=== PATIENT | female | born 1990 | race Two or more races ===

== ENCOUNTER 2024-09-15 12:52 | Emergency (ER) | payer MEDICAID, SELFPAY ==
[2024-09-15 12:54] VITALS: BMI 24.0
[2024-09-15 13:03] VITALS: BP 114/74; PULSE 73; RESP 18; TEMP 36.9; O2SAT 98
--- NOTE | 2024-09-15 13:23 | XR_ITS ---
Examination: Complete OB ultrasound greater than 14 weeks Date and time of exam: September 15, 2024 1331 hrs. Indications: No movement noticed beginning 2 days ago Findings: Viable intrauterine single fetus with single amniotic sac presentation cephalic Cardiac motion 148 BPM. Placenta maternal right grade 1 Umbilical cord insertion seen Amniotic fluid index 10.7 cm Cervix 4.8 cm Right ovary 3.0 x 2.6 cm arterial flow Left ovary 2.0 x 1.4 cm arterial flow. Composite estimated gestational age based on BPD, head circumference, abdominal circumference, femur length is 19 weeks 6 days Estimated weight 320 g. Survey of intracranial anatomy, spinal anatomy, abdominal anatomy, four-chamber heart performed with no abnormalities identified. Impression: Viable intrauterine gestation cephalic presentation Placenta maternal right, no abruption
--- NOTE | 2024-09-15 13:23 | PD.EDRME ---
Rapid Medical Screening Exam RME Arrival date/time: 09/15/24 12:52 33-year-old female presents emergency department today complaints of pelvic pain vaginal discharge patient reports pain approximate 19 weeks Chief Complaint: General Adult/Misc Complain Vital signs: Vital Signs Temperature 98.4 F 09/15/24 13:03 Pulse Rate 73 09/15/24 13:03 Respiratory Rate 18 09/15/24 13:03 Blood Pressure 114/74 09/15/24 13:03 Pulse Oximetry (%) 98 09/15/24 13:03 Oxygen Delivery Method Room Air 09/15/24 13:03
[2024-09-15 13:42] LABS: Basophils % (Auto) 0 % (0-2.5); Eosinophils % (Auto) 1 % (0-10); Hematocrit 37.2 % (36.0-46.0); Hemoglobin 12.8 g/dL (12.0-16.0); Immature Granulocytes % (Auto) 0 % (0-0); Immature Granulocytes Auto 0.03 Thou/mm3 (0.00-0.00); Lymphocytes # (Auto) 1.8 Thou/mm3 (1.0-4.8); Lymphocytes % (Auto) 21 % (10-50); Mean Corpuscular HGB Conc 34.4 g/dl (31.0-37.0); Mean Corpuscular Hemoglobin 30.1 pg (25.0-35.0); Mean Corpuscular Volume 88 fL (80-100); Monocytes # (Auto) 0.9 Thou/mm3 (0.0-0.8); Monocytes % (Auto) 10 % (0-12); Neutrophils # (Auto) 5.7 Thou/mm3 (1.8-7.7); Neutrophils % (Auto) 68 % (37-80); Nucleated Red Blood Cell % 0 /100 WBC (0); Platelet Count 273 Thou/mm3 (140-440); RDW Standard Deviation 62.3 fL (36.4-46.3); Red Blood Count 4.25 Miln/mm3 (4.00-5.20); White Blood Count 8.4 Thou/mm3 (3.6-11.0)
[2024-09-15 13:58] LABS: Alanine Aminotransferase 13 U/L (10-49); Albumin, Serum 3.7 gm/dL (3.5-5.0); Albumin/Globulin Ratio 1.2 (1.2-2.2); Alkaline Phosphatase 65 U/L (46-116); Anion Gap 7 (7-16); Aspartate Amino Transferase 15 U/L (0-34); BUN/Creatinine Ratio 13 Ratio (12-20); Bilirubin,Total 0.4 mg/dL (0.3-1.2); Blood Urea Nitrogen 8 mg/dL (9-23); Calcium 8.4 mg/dL (8.3-10.6); Calcium (Corrected) 8.6 mg/dL (8.5-10.1); Carbon Dioxide 27.1 mMol/L (20.0-31.0); Chloride 104 mMol/L (98-107); Creatinine (Component) 0.6 mg/dL (0.6-1.3); Estimated Creatinine Clearance 122.5 mL/min (>60); Globulin 3.1 gm/dL (2.3-3.5); Glucose 71 mg/dL (74-106); Osmolality,Calculated 271 (275-295); Potassium 3.8 mMol/L (3.4-5.1); Sodium 138 mMol/L (136-145); Total Protein 6.8 gm/dL (5.7-8.2); eGFR > 60 See Note
[2024-09-15 14:17] LABS: Beta HCG,Quantitative 8108 mIU/mL (<5.0)
[2024-09-15 14:25] LABS: Collection Type, Urine Clean Catch
[2024-09-15 14:29] LABS: Bilirubin,Urine Negative (Negative); Blood,Urine Negative (Negative); Clarity,Urine Clear (Clear/Hazy); Color,Urine Colorless (Lt Yel-Yel); Glucose, Urine Negative (Negative); Ketones,Urine Negative (Negative); Leukocyte Esterase,Urine Negative (Negative); Nitrite,Urine Negative (Negative); PH,Urine 6.5 (5.0-7.0); Protein,Urine Negative (Neg - Trace); RBC,Urine 1 /hpf (0-3); Specific Gravity,Urine 1.007 (1.001-1.035); Squamous Epithelial Cell,Urine 1 /hpf (0-5); Urobilinogen,Urine Negative mg/dL (0.0-1.0); WBC,Urine 1 /hpf (0-5)
[2024-09-15 15:33] VITALS: BP 119/82; PULSE 85; RESP 16; TEMP 37.1; O2SAT 97
[2024-09-15 16:31] LABS: Chlamydia trachomatis PCR Negative (Not Detect); Neisseria Gonorrhoeae DNA PCR Negative (Not Detect); Trichomonas Negative (Negative)
--- NOTE | 2024-09-15 16:38 | EDNOTE_ITS ---
ED General RME/HPI General Chief complaint: General Adult/Misc Complain Stated complaint: NO MOVEMENT X2 DAYS, 19WKS Time Seen by Provider: 09/15/24 16:38 Arrival date/time: 09/15/24 12:52 33-year-old female presents emergency department today complaints of pelvic pain vaginal discharge patient reports pain approximate 19 weeks patient also reports she has dental pain patient reports she was prescribed amoxicillin but is out of her medicine there are no other associated symptoms or aggravating factors no other modifying factors, patient denies taking medication before coming to ER today Limitations: no limitations RME / HPI RME / HPI narrative: 09/15/24 12:52 33-year-old female presents emergency department today complaints of pelvic pain vaginal discharge patient reports pain approximate 19 weeks Related Data Previous Rx's ?Medication ?Instructions ?Recorded amoxicillin 500 mg capsule 500 mg PO BID 7 days #14 ca ps 09/15/24 Allergies Allergy/AdvReac Type Severity Reaction Status Date / Time No Known Allergies Allergy Verified 09/15/24 12:53 Review of Systems Review of Systems Systems Reviewed: All systems reviewed, normal except as documented Constitutional Constitutional: Reports system reviewed and no additional complaints, except as documented, Denies fever(s) and Denies headache(s) Eyes Eyes: Reports system reviewed and no additional complaints, except as documented and Denies blurry vision ENT Ears, Nose, Mouth, and Throat: Reports system reviewed and no additional complaints, except as documented, Reports dental pain, Reports facial pain, Denies headache(s), Denies nasal congestion and Denies nasal discharge Cardiovascular Cardiovascular: Reports system reviewed and no additional complaints, except as documented, Denies chest pain and Denies dyspnea Respiratory Respiratory: Reports system reviewed and no additional complaints, except as documented, Denies chest congestion, Denies cough and Denies dyspnea Gastrointestinal Gastrointestinal: Reports system reviewed and no additional complaints, except as documented and Denies abdominal pain Integumentary/Breasts Skin/Breast: Reports system reviewed and no additional complaints, except as documented and Denies rash Neurologic Neurologic: Reports system reviewed and no additional complaints, except as documented, Reports as per HPI and Denies headache(s) Past Medical History Social History SMOKING STATUS: Current some day smoker ED Exam General Limitations: Present no limitations General appearance: Present alert and in no apparent distress Head Head exam: Present atraumatic Eye Eye exam: Present normal appearance, PERRL and EOMI ENT ENT exam: Present normal oropharynx, mucous membranes moist and other Expanded ENT Exam Mouth exam: Absent drooling or trismus Teeth exam: Present dental caries, dental tenderness # and gingival swelling Neck Neck exam: Present normal inspection, full ROM and trachea midline Chest Chest inspection: Present normal inspection and symmetric chest wall rise Respiratory Respiratory exam: Present normal lung sounds bilaterally Cardiovascular Cardiovascular exam: Present regular rate, normal rhythm and normal heart sounds Abdominal Exam Abdominal exam: Present soft and normal bowel sounds Extremities Exam Extremities exam: Present normal inspection and full ROM Back Exam Back exam: Present normal inspection and full ROM Neurological Exam Neurological exam: Present alert, oriented X3 and CN II-XII intact Psychiatric Psychiatric exam: Present normal affect and normal mood Skin Skin exam: Present warm, dry, intact and normal color Course Quality Measures none Orders Category Date Time Status US OB >= 14 weeks Fetus Stat Exams 09/15/24 13:23 Completed ABO/RH Type Stat Lab 09/15/24 13:30 Completed Beta HCG,Quantitative Stat Lab 09/15/24 13:30 Completed CBC Stat Lab 09/15/24 13:30 Completed Chlamydia/GC/TV - PCR Stat Lab 09/15/24 14:19 Completed Comprehensive Metabolic Panel Stat Lab 09/15/24 13:30 Completed UA [Urinalysis] Stat Lab 09/15/24 14:19 Completed Urine Culture Stat Lab 09/15/24 14:19 Received Vital Signs Vital signs: Vital Signs Temperature 98.4 F 09/15/24 13:03 Pulse Rate 73 09/15/24 13:03 Respiratory Rate 18 09/15/24 13:03 Blood Pressure 114/74 09/15/24 13:03 Pulse Oximetry (%) 98 09/15/24 13:03 Oxygen Delivery Method Room Air 09/15/24 13:03 O2 saturation 98% room air wnl [facility] Patient data External records reviewed:: [facility] previous records Clinical information provided by:: patient Social determinants that could affect healthcare access:: none Patient has the following chronic illnesses:: None How is presenting disease/condition affected by chronic disease/condition?: no chronic disease Evaluation data The following diagnostics were reviewed and interpreted by me:: lab results and radiology exam(s) Lab and/or radiology exams considered but not ordered:: Lab and radiology obtained Interpretation Summary: Reviewed by me Medications Medications considered but not ordered:: Consider not ordered Medication administrations:: N/A Consultations Consultation(s) initiated? (list below): No Diagnosis Differential Diagnosis ED Complaint MDM: Dental pain, dental abscess, early Most likely diagnosis given after review of the tests above:: Dental pain, early Admission Indicated Admission indicated?: not indicated Explain why admission is indicated or not indicated:: No criteria Admission Request Was there a request for admission?: No Disposition Plan Disposition Plan: Discharge Discharge Attestation Discharge Attestation: The patient and all family members were given an opportunity to ask questions and understood the discharge instructions. Discharge instructions specifically effects, indications for sooner follow up or return to the emergency department, and the expected course of current diagnosis. Patient condition: Stable Medical Decision Making MDM Narrative MDM Narrative: 33-year-old female presents emergency department today complaints of pelvic pain vaginal discharge patient reports pain approximate 19 weeks patient also reports she has dental pain patient reports she was prescribed amoxicillin but is out of her medicine there are no other associated symptoms or aggravating factors no other modifying factors, patient denies taking medication before coming to ER today Patient reports no vaginal bleeding no significant pain On exam patient well-appearing patient does not appear ill or toxic in no acute distress Patient has tenderness to the gingiva patient reports recent dental work requesting prescription for amoxicillin as she had a prescription but she no longer has it Patient discharged home in no distress to follow-up with primary care doctor in the next 24 to 48 hours and for any worsening symptoms to return to the ER immediately Differential Diagnosis Differential Diagnosis: Dental pain, dental abscess, early Medical Records Medical records reviewed: Yes I reviewed the patient's medical records. Lab Data Lab results reviewed: Yes I reviewed the patient's lab results. 09/15/24 13:30 09/15/24 13:30 Labs: Lab Results 09/15/24 09/15/24 Range/Units 13:30 14:19 WBC 8.4 (3.6-11.0) Thou/mm3 RBC 4.25 (4.00-5.20) Miln/mm3 Hgb 12.8 (12.0-16.0) g/dL Hct 37.2 (36.0-46.0) % MCV 88 (80-100) fL MCH 30.1 (25.0-35.0) pg MCHC 34.4 (31.0-37.0) g/dl RDW Std Deviation 62.3 H (36.4-46.3) fL Plt Count 273 (140-440) Thou/mm3 Neut % (Auto) 68 (37-80) % Lymph % (Auto) 21 (10-50) % [place] % (Auto) 10 (0-12) % Eos % (Auto) 1 (0-10) % Baso % (Auto) 0 (0-2.5) % Neut # (Auto) 5.7 (1.8-7.7) Thou/mm3 Lymph # (Auto) 1.8 (1.0-4.8) Thou/mm3 [place] # (Auto) 0.9 H (0.0-0.8) Thou/mm3 Eos # (Auto) 0.0 (0.0-0.5) Thou/mm3 Baso # (Auto) 0.0 (0.0-0.2) Thou/mm3 Immature Gran # (Auto) 0.03 H (0.00-0.00) Thou/mm3 Absolute Nucleated RBC 0.00 (0.00-0.00) Thou/mm3 Immature Gran % 0 (0-0) % Nucleated RBC % 0 (0) /100 WBC Sodium 138 (136-145) mMol/L Potassium 3.8 (3.4-5.1) mMol/L Chloride 104 (98-107) mMol/L Carbon Dioxide 27.1 (20.0-31.0) mMol/L Anion Gap 7 (7-16) BUN 8 L (9-23) mg/dL Creatinine 0.6 (0.6-1.3) mg/dL Estim Creat Clear Calc 122.5 (>60) mL/min eGFR > 60 (60 - ) See Note BUN/Creatinine Ratio 13 (12-20) Ratio Glucose 71 L (74-106) mg/dL Calculated Osmolality 271 L (275-295) Calcium 8.4 (8.3-10.6) mg/dL Corrected Calcium 8.6 (8.5-10.1) mg/dL Total Bilirubin 0.4 (0.3-1.2) mg/dL AST 15 (0-34) U/L ALT 13 (10-49) U/L Alkaline Phosphatase 65 (46-116) U/L Total Protein 6.8 (5.7-8.2) gm/dL Albumin 3.7 (3.5-5.0) gm/dL Globulin 3.1 (2.3-3.5) gm/dL Albumin/Globulin Ratio 1.2 (1.2-2.2) Beta HCG, Quant 8108 (<5.0) mIU/mL Ur Collection Type Clean Catch Urine Color Colorless A (Lt Yel-Yel) Urine Clarity Clear (Clear/Hazy) Urine pH 6.5 (5.0-7.0) Ur Specific [place] 1.007 (1.001-1.035) Urine Protein Negative (Neg - Trace) Urine Glucose (UA) Negative (Negative) Urine Ketones Negative (Negative) Urine Blood Negative (Negative) Urine Nitrite Negative (Negative) Urine Bilirubin Negative (Negative) Urine Urobilinogen (Auto) Negative (0.0-1.0) mg/dL Ur Leukocyte Esterase Negative (Negative) Urine RBC 1 (0-3) /hpf Urine WBC 1 (0-5) /hpf Ur Squamous Epith Cells 1 (0-5) /hpf Urine Bacteria None (None) Chlam trachomat DNA PCR Negative (Not Detect) N.gonorrhoeae DNA (PCR) Negative (Not Detect) Trichomonas DNA Probe Negative (Negative) Blood Type A Positive Blood Bank Wristband ID Yes Discharge Plan Plan Patient Disposition: HOME (Self Care) Disposition Comment: Stable Prescriptions/Referrals Prescriptions/Med Rec: New amoxicillin 500 mg capsule 500 mg PO BID 7 Days Qty: 14 0RF Referrals: No Primary/Family,Physician [Primary Care Provider] - In 1 week Problem List Clinical Impression: , Pain, dental Patient/Caregiver Discharge Instructions Education Materials: ED Dental Pain Additional Instructions: Please follow-up with [facility] as discussed for worsening symptoms return immediately Print Language: Citizen Of [place] Stand Alone Forms: [employer] Info., Patient Portal Info Letter PA/RAE Supervising Physician PA/RAE Supervising Physician: Dr Nuñez
== END 2024-09-15 16:50 | disposition home or self-care (01) ==
PROVIDERS: Nurse Practitioner Primary Care; Emergency Provider Emergency Medicine
DX: O26.892 Other specified pregnancy related conditions, second trimester (principal); R10.2 Pelvic and perineal pain; K08.89 Other specified disorders of teeth and supporting structures
CPT/HCPCS: 36415; 76805; 80053; 81001; 84702; 85025; 86900; 86901; 87086; 87491; 87591; 87661; 99284